=== PATIENT | female | born 1980 | race Caucasian/White ===

== ENCOUNTER 2022-01-03 17:45 | Emergency (ER) | payer OTHER ==
[~2022-01-03] VITALS: Ht 124.5 cm; Wt 49.9 kg
[2022-01-03 17:48] VITALS: BP 118/76
--- NOTE | 2022-01-03 17:51 | NUR ---
Patient discharged in custody in stable condition. Written and verbal after care instructions given. Patient verbalizes understanding of instruction.
== END 2022-01-03 17:55 ==
LOC: ER 17:50
DX: Z02.89 Encounter for other administrative examinations (principal)